=== PATIENT | male | born 1995 | race African-American/Black ===

== ENCOUNTER → 2023-09-06 | Emergency (ER) | payer BC ==
--- OUTSIDE RECORDS SUMMARY | 2023-09-06 14:08 | XMS REPORT | Continuity of Care Document ---
Author Name Unknown Address [address] [place] [address] [address] thconnect Address [address] [place] [address] [address] [place] [address] Care Team Providers Care Motor And Generator Assembler Name Role Phone Unavailable Unavailable Unavailable Encounters Start Date/Time End Date/Time Encounter Type Admission Type Attending Clinicians Care Facility Care Department Encounter ID Source 2023-03-22 17:16:07 2023-03-22 17:16:07 Outpatient [facility] [id number] Alberto Duvall
--- NOTE | 2023-09-06 15:27 | RAD REPORT ---
EXAM DESCRIPTION: RAD - Ankle Left 3 View - 09/06/2023 2:47 pm CLINICAL HISTORY: PAIN COMPARISON: No comparisons FINDINGS: No fracture or dislocation seen.
--- NOTE | 2023-09-06 15:42 | ER ---
Nurse's Notes [facility] Name: Emiliano Justice Age: 28 yrs Sex: Male : 1995 Arrival Date: 09/06/2023 Time: 14:06 Bed Treatment Private MD: Diagnosis: Sprain of unspecified ligament of left ankle Presentation: 09/06 14:23 Chief complaint: Patient states: Left ankle injury yesterday while playing basketball. ld1 C/O pain to left ankle, "heard a few pops.". Coronavirus screen: At this time, the client does not indicate any symptoms associated with coronavirus-19. Ebola Screen: No symptoms or risks identified at this time. Initial Sepsis Screen: Does the patient meet any 2 criteria? No. Patient's initial sepsis screen is negative. Does the patient have a suspected source of infection? No. Patient's initial sepsis screen is negative. Risk Assessment: Do you want to hurt yourself or someone else? Patient reports no desire to harm self or others. Onset of symptoms was September 06, 2023 at 14:24. 14:23 Method Of Arrival: Wheelchair ld1 14:23 Acuity: VAHE 4 ld1 Triage Assessment: 14:24 General: Appears in no apparent distress. comfortable, Behavior is calm, cooperative, ld1 appropriate for age. Pain: Complains of pain in left foot Pain does not radiate. Pain currently is 7 out of 10 on a pain scale. Quality of pain is described as throbbing, Pain began suddenly, Is continuous. EENT: No signs and/or symptoms were reported regarding the EENT system. Neuro: Level of Consciousness is awake, alert, obeys commands, Oriented to person, place, time, situation. Cardiovascular: Capillary refill < 3 seconds Patient's skin is warm and dry. Respiratory: Airway is patent Respiratory effort is even, unlabored. GI: Abdomen is flat, non-distended. : No signs and/or symptoms were reported regarding the genitourinary system. Derm: No signs and/or symptoms reported regarding the dermatologic system. Musculoskeletal: Reports pain in left foot. Historical: - Allergies: 14:24 No Known Allergies; ld1 - PMHx: 14:24 None; ld1 - PSHx: 14:24 None; ld1 - Immunization history:: Adult Immunizations up to date. - Social history:: Smoking status: Patient denies any tobacco usage or history of. Patient/guardian denies using alcohol. - Family history:: not pertinent. Screenin:36 [facility] ED Fall Risk Assessment (Adult) History of falling in the last 3 months, bp including since admission No falls in past 3 months (0 pts). Abuse screen: Denies threats or abuse. Denies injuries from another. Nutritional screening: No deficits noted. Tuberculosis screening: No symptoms or risk factors identified. Assessment: 14:30 General: SEE TRIAGE NOTE. bp 16:36 Reassessment: DC HOME AMBULATORY. bp Vital Signs: 14:23 BP 137 / 81; Pulse 62; Resp 18; Temp 97.6(TE); Pulse Ox 98% on R/A; Weight 70.31 kg; ld1 Height 5 ft. 10 in. ; Pain 7/10; 16:37 BP 121 / 79; Pulse 75; Resp 16; Pulse Ox 98% ; bp 14:23 Body Mass Index 22.24 (70.31 kg, 177.8 cm) ld1 14:23 Pain Scale: Adult ld1 ED Course: 14:10 Patient arrived in ED. mr 14:10 Niraj Cai MD is Attending Physician. rt 14:24 Triage completed. ld1 14:24 Arm band placed on right wrist. ld1 14:27 Indra Vásquez, NEO is Primary Nurse. bp 14:48 Ankle Left 3 View XRAY In Process Unspecified. EDMS 16:36 Patient has correct armband on for positive identification. bp 16:36 No provider procedures requiring assistance completed. Patient did not have IV access bp during this emergency room visit. Ortho shoe applied to left foot. Administered Medications: No medications were administered Medication: 16:36 VIS not applicable for this client. bp Outcome: 15:42 Discharge ordered by . rt 16:36 Discharged to home ambulatory, bp 16:36 Condition: stable 16:36 Discharge instructions given to patient, Instructed on discharge instructions, follow up and referral plans. Demonstrated understanding of instructions, follow-up care, 16:37 Patient left the ED. bp Signatures: Dispatcher [employer] EDAR Lisa Mora, Reg Reg mr Indra Vásquez, RN RN bp Asya Vera RN RN ld1 Niraj Cai MD MD rt
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
[2023-09-06 16:52] VITALS: BP 121/79; TEMP 97.6; O2SAT 98
== END ==
LOC: ER 14:06
DX: S93.402A Sprain of unspecified ligament of left ankle, initial encounter (principal)

== ENCOUNTER 2024-11-04 14:12 | Emergency (ER) | payer BC ==
--- OUTSIDE RECORDS SUMMARY | 2024-11-04 14:16 | XMS REPORT | Continuity of Care Document ---
Author Name Unknown Address [address] [place] [address] 1 [address] [place] [address] [facility] Address [address] [facility] 1 [address] [place] [address] Care Team Providers Care Shift Supervisor Rn Name Role Phone Unavailable Unavailable Unavailable Encounters Start Date/Time End Date/Time Encounter Type Admission Type Attending Clinicians Care Facility Care Department Encounter ID Source 2023-03-22 17:16:07 2023-03-22 17:16:07 Outpatient [facility] [id number] Alberto Duvall
[2024-11-04] MEDS ORDERED: IBUPROFEN 400 MG TAB ONE (15:08)
--- NOTE | 2024-11-04 15:20 | RAD REPORT ---
EXAM: XR Hand Right 3 View HISTORY: [facility] MAIN PAIN Bed: COMPARISON: None TECHNIQUE: 3 radiographic views of the RIGHT hand submitted. FINDINGS: Oblique fracture likely with intra-articular extension along the base of the fourth metacar pal. Crescentic osseous fragment seen on the lateral view, could be arising from the hamate, less likely fourth or fifth metacarpal bases. Soft tissue swelling about the hyperthenar eminence and dors um of the hand. No significant degenerative changes or erosions are present. IMPRESSION: Fracture at the base of the fourth metacarpal, and possible fractures of the hamate or fifth metacarp al base as well.
--- NOTE | 2024-11-04 15:21 | RAD REPORT ---
EXAM: XR Wrist Right 3 View HISTORY: [facility] MAIN PAIN Bed: COMPARISON: None TECHNIQUE: 3 views of the right wrist. FINDINGS: Oblique fracture likely with intra-articular extension along the base of the fourth metacar pal. Crescentic osseous fragment seen on the lateral view, could be arising from the hamate, less likely fourth or fifth metacarpal bases. Soft tissue swelling about the hyperthenar eminence and dors um of the hand. No significant degenerative changes or erosions are present. IMPRESSION: Fracture at the base of the fourth metacarpal, and possible fractures of the hamate or fifth metacarp al base as well.
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
[2024-11-04] MEDS ORDERED: HYDROCODONE/APAP 10/325 TAB ONE (15:52)
[2024-11-04 17:35] VITALS: BP 166/98; TEMP 98.5; O2SAT 100
== END 2024-11-04 16:28 | disposition home or self-care (01) ==
LOC: ER 14:12
PROC: 2W3EX1Z Immobilization of Right Hand using Splint (ICD-10-PCS; principal; 2024-11-04)
DX: S62.356A Nondisplaced fracture of shaft of fifth metacarpal bone, right hand, initial encounter for closed fracture (principal); S62.344A Nondisplaced fracture of base of fourth metacarpal bone, right hand, initial encounter for closed fracture; S62.144A Nondisplaced fracture of body of hamate [unciform] bone, right wrist, initial encounter for closed fracture
CPT/HCPCS: 99283